=== PATIENT | female | born 1960 | race Caucasian/White ===

== ENCOUNTER 2021-10-24 11:45 | Emergency (ER) | payer OTHER ==
[~2021-10-24] VITALS: Ht 160 cm; Wt 90.7 kg
[2021-10-24 11:58] VITALS: BP 128/65
[2021-10-24 13:18] LABS: BASOPHILS % (AUTO) 0.6 % (0.0-2.0); EOSINOPHILS # (AUTO) 0.1 K/uL (0-0.4); EOSINOPHILS % (AUTO) 1.1 % (0.0-4.0); HEMATOCRIT 44.6 % (36-48); HEMOGLOBIN 15.3 g/dL (12.0-16.0); LYMPHOCYTES # (AUTO) 1.7 K/uL (2.5-16.5); LYMPHOCYTES % (AUTO) 20.7 % (20.5-51.1); MEAN CORPUSCULAR HEMOGLOBIN 34 pg (27-31); MEAN CORPUSCULAR HGB CONC 34 g/dL (33-37); MEAN CORPUSCULAR VOLUME 98.3 fL (80-94); MONOCYTES # (AUTO) 0.8 K/uL (0.8-1.0); MONOCYTES % (AUTO) 9.3 % (1.7-9.3); NEUTROPHILS # (AUTO) 5.8 K/uL (1.8-7.7); NEUTROPHILS % (AUTO) 68.3 % (42.2-75.2); PLATELET COUNT (AUTO) 287 K/uL (140-450); RED BLOOD CELL COUNT(AUTO) 4.53 MIL/uL (4.20-5.40); RED CELL DISTRIBUTION WIDTH 12.2 % (11.6-13.7); WHITE BLOOD COUNT (AUTO) 8.5 K/uL (4.8-10.8)
--- NOTE | 2021-10-24 13:19 | NUR ---
61/F BIB SELF WITH C/O ABDOMINAL PAIN AND SOB X1 MONTH. PATIENT STATES SHE HAS HX OF ALCOHOL ABUSE, STATING HER LAST DRINK WAS 30 DAYS AGO. PATIENT STATES SHE FEELS SYMPTOMS WORSEN UPON AMBULATION, DENIES N/V/D, CP, DIZZINESS, HEADACHE OR CONFUSION. DENIES TAKING ANYTHING AT HOME FOR PAIN. OXYGEN SATURATION 96% ON ROOM AIR UPON ARRIVAL TO ED.
[2021-10-24 13:58] LABS: PROTHROMBIN TIME 9.9 secs (10.8-13.4)
[2021-10-24 14:03] LABS: ALBUMIN 3.7 g/dL (3.4-5.0); ANION GAP 19.1 (8-16); ASPARTATE AMINOTRANSFERASE 34 U/L (15-37); CARBON DIOXIDE 23.1 mmol/L (21-32); CHLORIDE 102 mmol/L (98-107); CREATININE 0.9 mg/dL (0.6-1.3); GFR ARICAN-AMERICAN 82 mL/min (>90); GLUCOSE 94 mg/dL (74-106); POTASSIUM 4.2 mmol/L (3.5-5.1); SODIUM SERUM 140 mmol/L (136-145); TOTAL BILIRUBIN 0.6 mg/dL (0.0-1.0); UREA NITROGEN, BLOOD 7 mg/dL (7-18)
--- NOTE | 2021-10-24 14:10 | NUR ---
PATIENT APPEARS TO BE RESTING, AWAITING RESULTS. ALL NEEDS MET AT THIS TIME.
--- NOTE | 2021-10-24 16:00 | NUR ---
PATIENT APPEARS TO BE RESTING, AWAITING RESULTS. ALL NEEDS MET AT THIS TIME.
[2021-10-24 17:20] VITALS: BP 142/88
--- NOTE | 2021-10-24 17:20 | NUR ---
Patient discharged with v/s stable. Written and verbal after care instructions ABOUT SHORTNESS OF BREATH given and explained. Patient verbalized understanding. Ambulatory with steady gait. All questions addressed prior to discharge. Advised to follow up with PMD.
--- NOTE | 2021-10-24 17:24 | NUR ---
The patient's care was reviewed and supervised by Sandra Jarquin RN.
== END 2021-10-24 17:20 | disposition home or self-care (01) ==
LOC: MED 11:45
DX: R10.9 Unspecified abdominal pain (principal); R22.43 Localized swelling, mass and lump, lower limb, bilateral; Z88.8 Allergy status to other drugs, medicaments and biological substances
CPT/HCPCS: 36415; 71045; 80053; 84484; 85025; 85379; 85610; 85730; 93005; 99285; G0482; Q0092